=== PATIENT | female | born 1990 | race Hispanic/Latino ===

== ENCOUNTER 2017-07-04 09:07 | Day surgery (SDC) | payer OTHER ==
[2017-07-04 09:32] VITALS: BMI 23.0
[2017-07-04] MEDS ORDERED: Lactated Ringer's 1,000 ML IV ONE (14:15)
[2017-07-04] MEDS ORDERED: Midazolam 2 MG/2 ML VIAL ONE (14:16)
[2017-07-04] MEDS ORDERED: Propofol 10 mg/ml Inj (20 ML) ONE (14:17)
[2017-07-04] MEDS ORDERED: Dexamethasone 4 mg/1 ml ONE (14:25)
[2017-07-04] MEDS ORDERED: Lactated Ringer's 1,000 ML IV SCH (15:15)
[2017-07-04] MEDS: HYDROmorphone 0.5 mg/0.5 ml ISec IVP PRN ×2 (15:37→15:53)
[2017-07-04] MEDS ORDERED: Oxycodone/Acetaminophen 5/325 mg Tab PO PRN (16:14)
[2017-07-04 16:47] VITALS: RESP 18; O2SAT 99
[2017-07-04 17:33] VITALS: BP 118/76; PULSE 72; TEMP 97.8
--- NOTE | 2017-07-12 08:17 | OP ---
PROCEDURE DATE: 07/04/17 SURGEON: Phu Arreaga MD [employer] OPERATOR: None. PREOPERATIVE DIAGNOSIS: Displaced left fifth proximal phalanx fracture. POSTOPERATIVE DIAGNOSIS: Displaced left fifth proximal phalanx fracture. PROCEDURE: 1. Left fifth proximal phalanx fracture closed reduction and percutaneous pinning, 03905. 2. Application of short arm cast on the left hand, 78947. BLOOD LOSS: None. TYPE OF ANESTHESIA: Local and IV sedation. COMPLICATIONS: None. DISPOSITION: Stable to recovery room. INDICATIONS: A 26-year-old female who sustained injury to her finger while playing volleyball and has deformity to the digit. Due to the deformity and instability of the fracture, she was indicated for the above procedure. Risks and benefits of the procedure were explained. Risks included, but not limited to bleeding; infection; tendon, nerve, vessel injury; instability; chronic pain; potential need for additional surgery in the future. The patient understood the above risks and elected to proceed. Informed consent was obtained. DESCRIPTION OF PROCEDURE: The patient was brought to the operating room and placed supine on the operating room table. After adequate anesthesia was given, a non-sterile tourniquet was placed on the patient's left upper extremity. The left upper extremity was then prepped and draped in a standard surgical fashion and time-out was performed. Intraoperative fluoroscopy was used to confirm the fracture. Under fluoroscopic guidance, the fracture was reduced with traction and flexion of the proximal phalanx while holding the fracture in place. Two 3.5 mm David wires were placed across the fracture site in crossing configuration. Reduction was stable, confirmed on fluoroscopy, good AP and lateral images, no finger malrotation. The wires were cut short protruding from the skin and bent. Sterile dressing was applied with Xeroform, 4 x 4s and fluff. A short arm plastic cast was then placed and held digits and manipulated flexion of the MCP joint. The patient tolerated the procedure well and was returned to recovery room in excellent condition. Phu Arreaag MD
== END 2017-07-04 18:40 | disposition home or self-care (01) ==
LOC: H.OPSURG 09:07
PROVIDERS: ATTEND Orthopaedic Surgery
DX: S62.617A Displaced fracture of proximal phalanx of left little finger, initial encounter for closed fracture (principal); Y93.68 Activity, volleyball (beach) (court); X58.XXXA Exposure to other specified factors, initial encounter
CPT/HCPCS: 26727; J1100; J1170; J1885; J2001; J2250; J2405; J2704; J2765; J3010; J7120